=== PATIENT | female | born 1970 | race Two or more races ===

== ENCOUNTER 2019-03-14 12:24 | Emergency (ER) | payer BC, OTHER ==
[~2019-03-14] VITALS: Ht 157.5 cm; Wt 73.7 kg
[2019-03-14 12:29] VITALS: BP 173/83
[2019-03-14] MEDS ORDERED: KETOROLAC 30 MG/1 ML ONE (12:58)
[2019-03-14] MEDS ORDERED: DIAZEPAM 5 MG TABLET ONE (12:58)
[2019-03-14] MEDS ORDERED: KETOROLAC 30 MG/1 ML IM ONE (13:00)
[2019-03-14] MEDS ORDERED: DIAZEPAM 5 MG TABLET PO ONE (13:00)
== END 2019-03-14 14:00 | disposition home or self-care (01) ==
LOC: ED 13:54
DX: G89.29 Other chronic pain (principal); M54.31 Sciatica, right side; I10 Essential (primary) hypertension; F17.200 Nicotine dependence, unspecified, uncomplicated
CPT/HCPCS: 72110; 96372; 99283; J1885

== ENCOUNTER 2019-03-14 22:41 | Emergency (ER) | payer BC ==
[~2019-03-14] VITALS: Ht 160 cm; Wt 74.5 kg
--- NOTE | 2019-03-14 23:19 | NUR ---
TO ROOM 25
[2019-03-14 23:56] LABS: HCG UR SG 1.038 (1.003-1.030)
[2019-03-15] MEDS ORDERED: HYDROcodone/APAP 10/325 MG TABLET PO ONE
[2019-03-15 00:03] LABS: CULTURE INDICATED? YES; MICROSCOPIC INDICATED
[2019-03-15] MEDS ORDERED: HYDROcodone/APAP 10/325 MG TABLET ONE (00:09)
--- NOTE | 2019-03-15 00:17 | NUR ---
MEDS ADMINISTERED ORDERED. SO AND PT UPDATED.
--- NOTE | 2019-03-15 00:59 | NUR ---
report to maurice
[2019-03-15 01:59] VITALS: BP 188/99
== END 2019-03-15 02:01 | disposition home or self-care (01) ==
LOC: ED 23:46
DX: M54.41 Lumbago with sciatica, right side (principal); Z88.8 Allergy status to other drugs, medicaments and biological substances
CPT/HCPCS: 81001; 81025; 87086; 99283; J7512